=== PATIENT | female | born 2000 | race Caucasian/White ===

== ENCOUNTER 2021-05-19 20:56 | Emergency (ER) | payer BC ==
[2021-05-19] MEDS ORDERED: HYDROmorphone 0.5 MG/0.5 ML Syringe IVPUSH ONE ×2 (21:06→21:32)
[2021-05-19] MEDS ORDERED: Metoclopramide 10 MG/2 ML SDV IVPUSH ONE (21:06)
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
[2021-05-19] MEDS ORDERED: Dextrose 5%-0.9% NaCl 1,000 ML IV SCH (21:15)
[2021-05-19] MEDS ORDERED: LORazepam 2 MG/ML SDV IVPUSH ONE (21:32)
[2021-05-19] MEDS ORDERED: ceFAZolin 1 GM in Sodium Chloride 0.9% 100 ML IV ONE (22:24)
--- NOTE | 2021-05-19 22:48 | PCM.PREANE ---
Preanesthetic Assessment - Procedure Proposed Procedure: closed reduction left wrist - Anesthesia/Transfusion/Family Hx Anesthesia History: Prior Anesthesia Without Reaction Family History of Anesthesia Reaction: No Transfusion History: No Prior Transfusion(s) - Review of Systems General: No Symptoms Pulmonary: No Symptoms Cardiovascular: No Symptoms Gastrointestinal: No Symptoms Neurological: Numbness (fingers left hand) Other: Reports: None - Physical Assessment NPO Status Date: 05/19/21 NPO Status Time: 18:00 Vital Signs: Last Vital Signs Temp 36.1 C 05/19/21 21:16 Pulse 90 05/19/21 21:25 Resp 18 05/19/21 21:25 BP 159/110 H 05/19/21 21:25 Pulse Ox 99 05/19/21 21:25 Height: 1.65 m Weight: 61.235 kg ASA Class: 2 Mental Status: Alert & Oriented x3 Airway Class: Mallampati = 1 Dentition: Reports: Normal Dentition Thyro-Mental Finger Breadths: 3 Mouth Opening Finger Breadths: 3 ROM/Head Extension: Full Lungs: Clear to Auscultation, Normal Respiratory Effort Cardiovascular: Regular Rate, Regular Rhythm - Lab Values: Laboratory Last Values WBC 11.63 K/mm3 (3.98-10.04) H 05/19/21 21:05 RBC 4.14 M/mm3 (3.98-5.22) 05/19/21 21:05 Hgb 11.9 gm/dl (11.2-15.7) 05/19/21 21:05 Hct 36.1 % (34.1-44.9) 05/19/21 21:05 MCV 87.2 fl (79.4-94.8) 05/19/21 21:05 MCH 28.7 pg (25.6-32.2) 05/19/21 21:05 MCHC 33.0 g/dl (32.2-35.5) 05/19/21 21:05 RDW Std Deviation 49.1 fL (36.4-46.3) H 05/19/21 21:05 Plt Count 341 K/mm3 (182-369) 05/19/21 21:05 MPV 10.2 fl (9.4-12.3) 05/19/21 21:05 Neut % (Auto) 44.9 % (34.0-71.1) 05/19/21 21:05 Lymph % (Auto) 42.6 % (19.3-51.7) 05/19/21 21:05 [place] % (Auto) 11.3 % (4.7-12.5) 05/19/21 21:05 Eos % (Auto) 0.7 (0.7-5.8) 05/19/21 21:05 Baso % (Auto) 0.3 % (0.1-1.2) 05/19/21 21:05 Neut # (Auto) 5.21 K/mm3 (1.56-6.13) 05/19/21 21:05 Lymph # (Auto) 4.96 K/mm3 (1.18-3.74) H 05/19/21 21:05 [place] # (Auto) 1.32 K/mm3 (0.24-0.36) H 05/19/21 21:05 Eos # (Auto) 0.08 K/mm3 (0.04-0.36) 05/19/21 21:05 Baso # (Auto) 0.04 K/mm3 (0.01-0.08) 05/19/21 21:05 Sodium 137 mEq/L (136-145) 05/19/21 21:05 Potassium 3.3 mEq/L (3.5-5.1) L 05/19/21 21:05 Chloride 104 mEq/L (98-107) 05/19/21 21:05 Carbon Dioxide 24 mEq/L (21-32) 05/19/21 21:05 Anion Gap 12.3 (5-15) 05/19/21 21:05 BUN 15 mg/dL (7-18) 05/19/21 21:05 Creatinine 0.9 mg/dL (0.55-1.02) 05/19/21 21:05 Est Cr Clr Drug Dosing 90.47 mL/min 05/19/21 21:05 Estimated GFR (MDRD) > 60 mL/min (>60) 05/19/21 21:05 BUN/Creatinine Ratio 16.7 (14-18) 05/19/21 21:05 Glucose 92 mg/dL (70-99) 05/19/21 21:05 Calcium 8.6 mg/dL (8.5-10.1) 05/19/21 21:05 Total Bilirubin 0.2 mg/dL (0.2-1.0) 05/19/21 21:05 AST 21 U/L (15-37) 05/19/21 21:05 ALT 22 U/L (14-59) 05/19/21 21:05 Alkaline Phosphatase 87 U/L (46-116) 05/19/21 21:05 Total Protein 8.2 g/dl (6.4-8.2) 05/19/21 21:05 Albumin 4.2 g/dl (3.4-5.0) 05/19/21 21:05 Globulin 4.0 gm/dL 05/19/21 21:05 Albumin/Globulin Ratio 1.1 (1-2) 05/19/21 21:05 HCG, Qual Negative (NEGATIVE) 05/19/21 21:05 Ethyl Alcohol 0.00 gm% (0.00) 05/19/21 21:05 SARS-CoV-2 RNA (INOCENCIO) Negative (NEGATIVE) 05/19/21 21:40 - Allergies Allergies/Adverse Reactions: Allergies Allergy/AdvReac Type Severity Reaction Status Date / Time No Known Allergies Allergy Verified 05/19/21 21:18 - Blood Blood Available: No Product(s) Available: None - Anesthesia Plan Pre-Op Medication Ordered: None - Acknowledgements Anesthesia Type Planned: MAC Pt an Appropriate Candidate for the Planned Anesthesia: Yes Alternatives and Risks of Anesthesia Discussed w Pt/Guardian: Yes Pt/Guardian Understands and Agrees with Anesthesia Plan: Yes PreAnesthesia Questionnaire - Past Health History Medical/Surgical History: Denies Medical/Surgical History - SUBSTANCE USE Tobacco Use Status *Q: Never Tobacco User Second Hand Smoke Exposure: No Days Per Week of Alcohol Use: 0 Number of Drinks Per Day: 0 Total Drinks Per Week: 0 Recreational Drug Use History: No - HOME MEDS Home Medications: Home Meds . [No Known Home Meds] 05/19/21 [History] - CURRENT (IN HOUSE) MEDS Current Meds: Current Medications Dextrose/Sodium Chloride (Dextrose 5%-Normal Saline) 1,000 mls @ 125 mls/hr IV ASDIRECTED MICHAEL Last Admin: 05/19/21 21:18 Dose: 125 mls/hr Documented by: Cefazolin Sodium 1 gm/ Sodium (Chloride) 100 mls @ 100 mls/hr IV ONETIME ONE Stop: 05/19/21 23:23 Discontinued Medications Hydromorphone HCl (Hydromorphone 0.5 Mg/0.5 Ml Syringe) 0.5 mg IVPUSH ONETIME ONE Stop: 05/19/21 21:07 Last Admin: 05/19/21 21:18 Dose: 0.5 mg Documented by: Hydromorphone HCl (Hydromorphone 0.5 Mg/0.5 Ml Syringe) 0.5 mg IVPUSH ONETIME ONE Stop: 05/19/21 21:33 Last Admin: 05/19/21 21:41 Dose: 0.5 mg Documented by: Lorazepam (Lorazepam 2 Mg/Ml Sdv) 0.5 mg IVPUSH ONETIME ONE Stop: 05/19/21 21:33 Last Admin: 05/19/21 21:42 Dose: 0.5 mg Documented by: Metoclopramide HCl (Metoclopramide 10 Mg/2 Ml Sdv) 7.5 mg IVPUSH ONETIME ONE Stop: 05/19/21 21:07 Last Admin: 05/19/21 21:18 Dose: 7.5 mg Documented by:
[2021-05-19] MEDS ORDERED: Propofol 200 MG/20 ML SDV ONE (22:52)
[2021-05-19] MEDS ORDERED: Ketamine 500 mg/10 ML MDV ONE (22:52)
--- NOTE | 2021-05-20 16:31 | CR ---
Left wrist: 3 views of the left wrist were obtained. Comparison: No prior wrist exam is available. Displaced distal radial fracture is seen by a shaft width. Foreshortening is also noted. Displaced ulnar styloid process fracture is seen. Soft tissue swelling is noted. No additional bony abnormality is appreciated. Impression: 1. Displaced distal left radial fracture and displaced ulnar styloid avulsion fracture. 2. Diffuse soft tissue swelling. Diagnostic code #3
--- NOTE | 2021-05-20 16:32 | CR ---
Left wrist: 3 views of the left wrist were obtained. Comparison: Prior wrist study performed earlier on the same date (9:19 PM). Distal radial fracture shows evidence of significant reduction on current study. Very minimal displacement is noted with minimal posterior impaction. Small displaced ulnar styloid process fracture is seen. Fiberglass cast is in place. No additional abnormality is appreciated other than soft tissue swelling. Impression: 1. Significantly improved reduction of distal radial fracture. Minimal displacement persists with minimal posterior impaction. 2. Mildly displaced ulnar styloid process fracture. 3. Soft tissue swelling. 4. Fiberglass cast. Diagnostic code #2
== END 2021-05-20 00:35 | disposition home or self-care (01) ==
LOC: JD.ED 20:56
DX: S52.501A Unspecified fracture of the lower end of right radius, initial encounter for closed fracture (principal); S52.601A Unspecified fracture of lower end of right ulna, initial encounter for closed fracture; S50.811A Abrasion of right forearm, initial encounter; V86.99XA Unspecified occupant of other special all-terrain or other off-road motor vehicle injured in nontraffic accident, initial encounter
CPT/HCPCS: 25605; 36415; 73100; 73110; 80053; 80307; 84703; 85025; 87635; 96365; 96375; 99284; J0690; J1170; J2060; J2704; J2765; J7042; 01820; U0002